=== PATIENT | female | born 1965 | race Caucasian/White ===

== ENCOUNTER 2017-04-15 09:13 | Emergency (ER) | payer OTHER ==
[2017-04-15] MEDS ORDERED: ADVAIR DISK1 INH (09:31)
[2017-04-15] MEDS ORDERED: SPIRIVA IN (09:32)
[2017-04-15] MEDS ORDERED: SPIRIVA RE1.25 MCG/A (09:33)
[2017-04-15] MEDS ORDERED: HYDROXYZINE HCL10 MG PO (09:35)
[2017-04-15 09:53] LABS: HEMOGLOBIN 13.2 g/dl (12.0-16.0); IMMATURE GRANULOCYTES 0.4 % (0.0-1.0); MEAN CELL VOLUME 88.8 fL CALC (80.0-100.0); MEAN CORPUSCULAR HGB 30.1 pG CALC (26.0-32.0); MEAN CORPUSCULAR HGB CONC 33.8 g/L CALC (32.0-36.0); NEUT# 9.94 thou/uL (2.00-7.15); RED BLOOD COUNT 4.39 mill/uL (4.20-5.60); RED CELL DISTRI WIDTH 12.7 % (11.5-15.5)
[2017-04-15 10:11] LABS: INFLUENZA A NONE DETECTED (NONE DETECT); INFLUENZA B NONE DETECTED (NONE DETECT)
[2017-04-15 10:18] LABS: ANION GAP 15 (6-22 (CALC)); BUN 9 mg/dL (7-17); BUN/CREATININE RATIO 13 (12-20 (CALC)); CALCIUM 9.7 mg/dL (8.4-10.2); CARBON DIOXIDE 24 mmol/l (22-30); CHLORIDE 103 mmol/l (95-108); CREATININE 0.7 mg/dL (0.5-1.0); GFR > 60 ML/MIN (>=60 (CALC)); GFR FOR AFR.AMER. > 60 ML/MIN (>=60 (CALC)); GLUCOSE 109 mg/dL (65-105); POTASSIUM 4.6 mmol/l (3.5-5.1); SODIUM 137 mmol/l (137-146)
[2017-04-15 11:09] LABS: URINE BILIRUBIN - DIPSTICK NEGATIVE (NEGATIVE); URINE GLUCOSE - DIPSTICK NEGATIVE (NEGATIVE); URINE KETONE TRACE mg/dL (NEGATIVE); URINE LEUK ESTERASE NEGATIVE (NEGATIVE); URINE NITRITE - DIPSTICK NEGATIVE (Negative); URINE PH 6.5 (4.5-8.0); URINE PROTEIN - DIPSTICK TRACE mg/dL (NEG-TRACE); URINE SPECIFIC GRAVITY 1.015; URINE UROBILINOGEN - DIPSTICK 0.2 E.U./dL (0.2)
[2017-04-15 11:13] LABS: URINE CLARITY SL CLOUDY; URINE COLOR DK. YELLOW
[2017-04-15 11:14] LABS: URINE BLOOD DIPSTICK TRACE (NEGATIVE)
[2017-04-15] MEDS ORDERED: AUGMENTIN875TAB PO (13:03)
[2017-04-15] MEDS ORDERED: ZPAK PO (13:03)
[2017-04-15 13:12] VITALS: BP 110/82
== END 2017-04-15 13:13 | disposition home or self-care (01) | DRG 153 ==
LOC: ED 09:13
PROVIDERS: Family Medicine
DX: J06.9 Acute upper respiratory infection, unspecified (principal); M54.9 Dorsalgia, unspecified; R05 Cough; R50.9 Fever, unspecified

== ENCOUNTER 2017-08-23 11:24 | Inpatient (IN) | payer OTHER ==
[~2017-08-23] VITALS: Ht 160 cm; Wt 50.2 kg
[~2017-08-23 11:24] MED LIST: ADVAIR DISK1 INH; AUGMENTIN875TAB PO; HYDROXYZINE HCL10 MG PO; SPIRIVA IN; SPIRIVA RE1.25 MCG/A; ZPAK PO
--- NOTE | 2017-08-23 11:39 | NUR ---
WHEELCHAIR TO ER ROOM 15, TO BED
[2017-08-23 12:03] LABS: HEMATOCRIT 39.3 % (37.0-47.0); HEMOGLOBIN 13.2 g/dl (12.0-16.0); IMMATURE GRANULOCYTES 0.5 % (0.0-1.0); MEAN CELL VOLUME 87.3 fL CALC (80.0-100.0); MEAN CORPUSCULAR HGB 29.3 pG CALC (26.0-32.0); MEAN CORPUSCULAR HGB CONC 33.6 g/L CALC (32.0-36.0); NEUT# 5.75 thou/uL (2.00-7.15); RED BLOOD COUNT 4.5 mill/uL (4.20-5.60); RED CELL DISTRI WIDTH 13.3 % (11.5-15.5)
[2017-08-23 12:15] LABS: INFLUENZA A NONE DETECTED (NONE DETECT); INFLUENZA B NONE DETECTED (NONE DETECT)
[2017-08-23 12:21] LABS: ALBUMIN 4.2 g/dL (3.2-5.0); ALKALINE PHOSPHATASE 93 u/l (38-126); ANION GAP 15 (6-22 (CALC)); BILIRUBIN, TOTAL 0.3 mg/dL (0.0-1.4); BUN 8 mg/dL (7-17); BUN/CREATININE RATIO 10 (12-20 (CALC)); CARBON DIOXIDE 26 mmol/l (22-30); CHLORIDE 102 mmol/l (95-108); CREATININE 0.8 mg/dL (0.5-1.0); GFR > 60 ML/MIN (>=60 (CALC)); GFR FOR AFR.AMER. > 60 ML/MIN (>=60 (CALC)); POTASSIUM 4.2 mmol/l (3.5-5.1); SGOT/AST 34 u/l (14-36); SGPT/ALT 35 u/l (9-52); SODIUM 138 mmol/l (137-146); TOTAL PROTEIN 7.4 g/dL (6.3-8.2)
[2017-08-23] MEDS ORDERED: VISTARIL 50MG C50 M1 PO (12:33)
[2017-08-23] MEDS ORDERED: ADVAIR DISK2 IN (12:34)
[2017-08-23] MEDS ORDERED: ALBUTEROL SUL0.083 % IN (12:35)
[2017-08-23] MEDS ORDERED: PROVENTIL108 MCG/AC (12:36)
--- NOTE | 2017-08-23 12:37 | NUR ---
SOB IMPROVED, AWAITING LABS, NAD
--- NOTE | 2017-08-23 13:21 | NUR ---
BP NOTED, ER MD AWARE, AWAITING ORDERS, PT NOTES SHE "RUNS A LOW BP" BUT DOES NOT KNOW ANY SPECIFICS, PT NOTES FEELING BETTER AND LESS SOB.
--- NOTE | 2017-08-23 14:20 | NUR ---
PT RESTING QUIETLY, AWAITING BED ASSIGNMENT AND MONITORING BP.
--- NOTE | 2017-08-23 15:22 | NUR ---
DR. FLORES AT BEDSIDE, UPDATED ON BP FINDINGS. SMALL ADULT CUFF FITTED TO RIGHT ARM, BILATERAL UPPER EXTREMITY BP MEASUREMENTS TAKEN WITH MD IN ATTENDANCE.
[2017-08-23 15:57] LABS: URINE BILIRUBIN - DIPSTICK NEGATIVE (NEGATIVE); URINE BLOOD DIPSTICK NEGATIVE (NEGATIVE); URINE COLOR YELLOW; URINE GLUCOSE - DIPSTICK NEGATIVE (NEGATIVE); URINE KETONE TRACE mg/dL (NEGATIVE); URINE LEUK ESTERASE TRACE (NEGATIVE); URINE NITRITE - DIPSTICK NEGATIVE (Negative); URINE PH 5.5 (4.5-8.0); URINE PROTEIN - DIPSTICK NEGATIVE (NEG-TRACE); URINE SPECIFIC GRAVITY <=1.005; URINE UROBILINOGEN - DIPSTICK 0.2 E.U./dL (0.2)
[2017-08-23 16:00] LABS: URINE CLARITY CLEAR
--- NOTE | 2017-08-23 16:20 | NUR ---
AWAITING BED ASSIGNMENT, NO COMPLAINTS VOICED BY PT. RESTING QUIETLY, DENIES PAIN NOR SOB.
--- NOTE | 2017-08-23 16:38 | NUR ---
ER MD AWARE OF CURRENT BP PENDING ADMIT, ER MD NOTES HE AND ATTENDING ARE AWARE OF SBP LESS THAN 90, BUT CONTENT TO ADMIT WITHOUT VASOPRESSORS SINCE PT IS COMPLETELY AWAKE, ALERT, FEELING BETTER, PAIN FREE, WARM/ PINK SKIN WITH CAP REFIL LESS THAN 2 SECONDS PERIPHERALLY.
--- NOTE | 2017-08-23 16:53 | NUR ---
Admission Note Report Given to: PATRIA KWAN Transported by: Wheelchair X Stretcher Transported with: X Nurse Transporter X Patent IV X O2 X Instructional Facilitator
--- NOTE | 2017-08-23 17:07 | NUR ---
female pt received to ICU bed 3 via stretcher accompanied by Rosetta Baldwin RN in stable condition; ambulatory to scale then bed with steady gait; denies dizziness or lightheadedness upon movement/ambulation; c/c of sob starting Sun and fever of 103 starting last night; admission assessment completed at this time; pt alert and oriented x3; denies pain; no n/v noted; resp even and unlabored; lungs coarse with exp wheeze; skin color wnl; o2 per nc at 2L; vehicle monitor technician cough noted; pt admits to sob with minimal exertion; hr reg; sr on monitor; strong pulses; no edema noted; abd soft with bs present; no bm noted per ticket writer; pt denies pain or burning with urination; no urine to inspect at this time; #20 in lac patent with ivf infusing without complication; no redness or edema noted at; no smoking policy reviewed/e-cigarette noted; plan of care/ meds explained; call light within reach; will continue to monitor
[2017-08-23 17:15] VITALS: BP 92/61
[2017-08-23 17:30] VITALS: BP 92/68
[2017-08-23 17:45] VITALS: BP 94/63
[2017-08-23 18:00] VITALS: BP 87/53
[2017-08-23 18:15] VITALS: BP 92/58
--- NOTE | 2017-08-23 18:19 | NUR ---
pt awake in bed; no distress noted; pt offers no complaints; iv patent; no redness or edema noted at site; sr on monitor; o2 per nc; pt deny needs; bed in lowest position; call light within reach
--- NOTE | 2017-08-23 19:00 | NUR ---
REPORT RECEIVED FROM AQUILES CORRALES. PAT ALERT AND ORIENTED X 3 AND LYING IN BED. NO APPARENT ACUTE DISTRESS NOTED.
--- NOTE | 2017-08-23 19:53 | NUR ---
PT C/O BEING SOB AND CHEST FEELING TIGHT. O2 SAT WAS 92% ON 2L NC. DR PARHAM NOTIFIED AND ORDERS RECEIVED FOR DUONEB TREATMENT.
[2017-08-23 20:00] VITALS: BP 97/63
--- NOTE | 2017-08-23 23:55 | NUR ---
REPORT FROM Beatrice ROSARIO RN. ASSUMED PT. CARE.
[2017-08-24] VITALS (14 sets, daily range): BP systolic 80–102; BP diastolic 45–69
--- NOTE | 2017-08-24 00:10 | NUR ---
PT. FOUND AWAKE, ALERT, ORIENTED X 3. FOUND FEBRILE AT 102.3 COUGH NOTED. PT. MEDICATED WITH TYLENOL PER ORDERS. RESPS EVEN AND UNLABORED. MEDICATED WITH SLEEPING PILL PER HER REQUEST. CALL LIGHT REMAINS WITHIN REACH. DENIES COMPLAINTS OF PAIN OR NEED AT THIS TIME. IV FLUIDS CONTINUE TO INFUSE WITHOUT SX OF INFILTRATION OR EXTRAVASATION.
--- NOTE | 2017-08-24 01:28 | NUR ---
TEMP NOW DOWN AT 101.2 FROM 102.3. WILL CONTINUE TO MONITOR FOR FEVER, AND OTHER COMPLAINTS.
--- NOTE | 2017-08-24 02:40 | NUR ---
PT. ASSISTED TO BEDSIDE COMMODE. APPROX 1000 CC TOTAL OUTPUT NOTED TO HAT IN COMMODE AT THIS TIME. EMPTIED. IV FLUIDS CONTINUE TO INFUSE WITHOUT SX OF INFILTRATION OR EXTRAVASATION. REMAINS HYPOTENSIVE, BUT DENIES SYMPTOMS. CALL LIGHT REMAINS WITHIN REACH. WILL CONTINUE TO MONITOR.
--- NOTE | 2017-08-24 04:05 | NUR ---
PT. RESTING ON LT. SIDE IN NO DISTRESS. RESPS REMAIN EVEN AND UNLABORED. INTERMITTENT BRONCHITIC TYPE COUGH NOTED. PT. SINUS-MANUEL IN THE 40-50'S. PT. CALL LIGHT REMAINS WITHIN REACH. WILL CONTINUE TO ASSESS.
--- NOTE | 2017-08-24 05:37 | NUR ---
PT. ASSISTED TO BSC. LAB AT BEDSIDE AT THIS TIME TO DRAW PT. REMAINS STABLE. AFEBRILE. STATES WITH IMPROVEMENT IN SX.
--- NOTE | 2017-08-24 05:45 | NUR ---
RT. AT BEDSIDE AT THIS TIME. NEB TREATMENT IN PROGRESS.
[2017-08-24 05:59] LABS: HEMATOCRIT 34.2 % (37.0-47.0); IMMATURE GRANULOCYTES 0.5 % (0.0-1.0); MEAN CELL VOLUME 90.7 fL CALC (80.0-100.0); MEAN CORPUSCULAR HGB 29.2 pG CALC (26.0-32.0); MEAN CORPUSCULAR HGB CONC 32.2 g/L CALC (32.0-36.0); NEUT# 3.21 thou/uL (2.00-7.15); RED BLOOD COUNT 3.77 mill/uL (4.20-5.60); RED CELL DISTRI WIDTH 13.6 % (11.5-15.5)
[2017-08-24 06:17] LABS: ALBUMIN 3.4 g/dL (3.2-5.0); ALKALINE PHOSPHATASE 61 u/l (38-126); ANION GAP 15 (6-22 (CALC)); BILIRUBIN, TOTAL 0.1 mg/dL (0.0-1.4); BUN 9 mg/dL (7-17); BUN/CREATININE RATIO 15 (12-20 (CALC)); CARBON DIOXIDE 23 mmol/l (22-30); CHLORIDE 110 mmol/l (95-108); CREATININE 0.6 mg/dL (0.5-1.0); GFR > 60 ML/MIN (>=60 (CALC)); GFR FOR AFR.AMER. > 60 ML/MIN (>=60 (CALC)); POTASSIUM 4.3 mmol/l (3.5-5.1); SGOT/AST 33 u/l (14-36); SGPT/ALT 32 u/l (9-52); SODIUM 144 mmol/l (137-146)
[2017-08-24 06:19] LABS: TOTAL PROTEIN 5.9 g/dL (6.3-8.2)
--- NOTE | 2017-08-24 06:40 | NUR ---
pt transported to xray dept via shaji Castañeda RN in stable condition; returned to unit in stable condition;
--- NOTE | 2017-08-24 07:10 | NUR ---
pt awake in bed; no distress noted; pt offers no complaints; assessment completed at this time; pt alert and oriented; denies pain; no n/v noted; resp even and unlabored; pt admits to improved sob/sob on exertion; lungs coarse throughout; skin color wnl; o2 per nc; field worker cough noted; hr reg; strong pulses; no edema noted; sr on monitor; abd soft with bs present; no bm noted per typewriter assembler; pt admits to voiding without complication; no urine to inspect at this time; #20 patent to lac with ivf infusing without complication; no redness or edema noted at site; pt requesting site change d/t discomfort; plan of care/ am meds explained; call light within reach; will continue to monitor
--- NOTE | 2017-08-24 08:14 | NUR ---
awake; conversing on cell phone; sr on monitor; offers no complaints; deny needs; call light within reach; will continue to monitor
--- NOTE | 2017-08-24 10:11 | NUR ---
awake in bed; visitors at bedside; no distress noted; pt offers no complaints; iv intact and patent; no redness or edema noted at site; ra; call light within reach; will continue to monitor
--- NOTE | 2017-08-24 11:52 | NUR ---
awake in bed; offers no complaints; exerional sob noted; iv patent; no redness or edema noted at site; sr on monitor; o2 sat 97% ra; lungs coarse with wheezing throughout; call light within reach; will continue to monitor
--- NOTE | 2017-08-24 13:28 | NUR ---
bp 92/62, hr 102; fluid bolus initiated at this time as per orders for hypotenstion;; iv patent; no redness or edema noted at site
--- NOTE | 2017-08-24 14:03 | NUR ---
awake in bed; no distress noted; iv patent; no redness or edema noted at site; st on monitor; call light within reach; will continue to monitor
--- NOTE | 2017-08-24 14:26 | NUR ---
pt awake in bed; no distress noted; resp even and unlabored; ra; iv patent; no redness or edema noted at site; st on monitor; deny needs; call light within reach; will continue to monitor
--- NOTE | 2017-08-24 14:34 | NUR ---
fluid bolus completed; bp 80/45, sr 90 on monitor; remains hypotensitive; asymptomatic; pt cont to admit to bp "running low"; will continue to monitor
--- NOTE | 2017-08-24 18:02 | NUR ---
awake in bed; offers no complaints of nausea; no vomiting noted at present; iv patent; no redness or edema noted at site; sr on monitor; ra; o2 sat maintained/stable; pt denies needs at this time; bed in lowest position; call light within reach
--- NOTE | 2017-08-24 19:00 | NUR ---
PT SITTING UP IN BED WATCHING TV. PT IS ALERT AND ORIENTED X3. PERRLA. RESP ARE EVEN AND UNLABORED. NO DISTRESS NOTED. WHEEZING NOTED THROUGHOUT LUNGS. O2 SATS 96-98% ON ROOM AIR. HR REGULAR. PULSES PALPABLE THROUGHOUT. NO EDEMA NOTED. BS ACTIVE. #22 YANDEL WITH NS@125CC/HR. NO REDNESS OR EDEMA NOTED. WILL CONTINUE TO MONITOR
--- NOTE | 2017-08-25 | NUR ---
PT RESTING IN BED WITH EYES CLOSED. RESP ARE EVEN AND UNLABORED. NO DISTRESS NOTED. WILL CONTINUE TO MONITOR. CALL LIGHT IN REACH
--- NOTE | 2017-08-25 01:00 | NUR ---
PT WITH COMPLAINTS OF DRY COUGH. ROBITUSSIN ORDERED AND GIVEN. WILL CONTINUE TO MONITOR
[2017-08-25 02:00] VITALS: BP 117/71
--- NOTE | 2017-08-25 04:00 | NUR ---
PT RESTING IN BED WITH EYES CLOSED. RESP ARE EVEN AND UNLABORED. NO DISTRESS NOTED. WILL CONTINUE TO MONTIOR. CALL LIGHT WITHIN REACH
--- NOTE | 2017-08-25 04:28 | NUR ---
LAB INTO DRAW AM LABS
[2017-08-25 04:49] LABS: HEMATOCRIT 32.1 % (37.0-47.0); HEMOGLOBIN 10.5 g/dl (12.0-16.0); IMMATURE GRANULOCYTES 0.6 % (0.0-1.0); MEAN CELL VOLUME 88.7 fL CALC (80.0-100.0); MEAN CORPUSCULAR HGB CONC 32.7 g/L CALC (32.0-36.0); NEUT# 8.58 thou/uL (2.00-7.15); RED BLOOD COUNT 3.62 mill/uL (4.20-5.60); RED CELL DISTRI WIDTH 13.9 % (11.5-15.5)
[2017-08-25 05:21] LABS: ANION GAP 13 (6-22 (CALC)); BUN 7 mg/dL (7-17); BUN/CREATININE RATIO 13 (12-20 (CALC)); CARBON DIOXIDE 26 mmol/l (22-30); CHLORIDE 109 mmol/l (95-108); CREATININE 0.6 mg/dL (0.5-1.0); GFR > 60 ML/MIN (>=60 (CALC)); GFR FOR AFR.AMER. > 60 ML/MIN (>=60 (CALC)); MAGNESIUM 1.9 mg/dL (1.6-2.3); POTASSIUM 4.2 mmol/l (3.5-5.1); SODIUM 144 mmol/l (137-146)
[2017-08-25 06:00] VITALS: BP 106/65
--- NOTE | 2017-08-25 06:19 | NUR ---
PT STATES THAT THE COUGH MEDICATION HELPED A LOT
--- NOTE | 2017-08-25 07:12 | NUR ---
PT SEEN AWAKE, ALERT, ORIENTED X 3. LUNGS CLEAR, RA. PT AFEBRILE AT 97.8. NO DISTRESS, PT COMFORTABLE. PT DOES STATES THAT SHE HAS IRRITATING DRY COUGH.
[2017-08-25 10:00] VITALS: BP 106/73
--- NOTE | 2017-08-25 12:22 | NUR ---
PT SEEN BY DR DHILLON, ANTICIPATE DISCHARGE THIS AFTERNOON. PT CONTINUES TO DO WELL, UP AD DAVE TO BSC, NO SHORTNESS OF BREATH. SATS REMAIN IN MID TO UPPER 90s.
[2017-08-25] MEDS ORDERED: ZITHROMAX250 MG PO (12:39)
[2017-08-25] MEDS ORDERED: ROBITUSSIN200 MG/10 PO (12:42)
[2017-08-25] MEDS ORDERED: PREDNISONE10 MG PO (12:43)
--- NOTE | 2017-08-25 13:48 | NUR ---
PT VERBALIZES UNDERSTANDING OF DC INSTRUCTIONS, REMOVED FROM MONITORS, WAITS FOR HER FAMILY TO COME SONG WRITER. PT LEAVES DM IN STABLE CONDITION.
== END 2017-08-25 13:45 | disposition home or self-care (01) | DRG 192 ==
LOC: ED 11:24 → ED-I 13:22 → ED 16:44 → ICU 16:45
PROVIDERS: Emergency Medicine; Nurse Practitioner Family; ADMIT Internal Medicine; ATTEND Internal Medicine
DX: J44.1 Chronic obstructive pulmonary disease with (acute) exacerbation (principal); Z90.2 Acquired absence of lung [part of]

== ENCOUNTER 2019-12-30 15:21 | Emergency (ER) | payer OTHER ==
[~2019-12-30] VITALS: Ht 160 cm; Wt 48.2 kg
[~2019-12-30 15:21] MED LIST changes: +ADVAIR DISK2 IN; +ALBUTEROL SUL0.083 % IN; +PREDNISONE10 MG PO; +PROVENTIL108 MCG/AC IN; +ROBITUSSIN200 MG/10 PO; +VISTARIL 50MG C50 M1 PO; +ZITHROMAX250 MG PO
[2019-12-30] MEDS ORDERED: SPIRIVA HANDIH18 MCG PO (15:49)
[2019-12-30] MEDS ORDERED: HYDROXYZ HCL50 MG PO (15:51)
[2019-12-30] MEDS ORDERED: LORTAB 5/3255 MG PO ×2 (16:58→16:59)
[2019-12-30 17:23] VITALS: BP 123/73
== END 2019-12-30 17:23 | disposition home or self-care (01) ==
LOC: ED 15:21
DX: S52.501A Unspecified fracture of the lower end of right radius, initial encounter for closed fracture (principal); J43.9 Emphysema, unspecified; F17.290 Nicotine dependence, other tobacco product, uncomplicated; W01.0XXA Fall on same level from slipping, tripping and stumbling without subsequent striking against object, initial encounter; Y93.59 Activity, other involving other sports and athletics played individually

== ENCOUNTER 2020-01-26 13:27 | Emergency (ER) | payer OTHER ==
[~2020-01-26] VITALS: Ht 160 cm; Wt 60.0 kg
[~2020-01-26 13:27] MED LIST changes: +HYDROXYZ HCL50 MG PO; +LORTAB 5/3255 MG PO; +SPIRIVA HANDIH18 MCG PO
[2020-01-26 15:16] LABS: HEMOGLOBIN 12.3 g/dl (12.0-16.0); IMMATURE GRANULOCYTES 0.2 % (0.0-5.0); MEAN CELL VOLUME 88.2 fL CALC (80.0-100.0); MEAN CORPUSCULAR HGB 28.5 pG CALC (26.0-32.0); MEAN CORPUSCULAR HGB CONC 32.3 g/dL CAL (32.0-36.0); NEUT# 3.34 thou/uL (2.00-7.15); RED BLOOD COUNT 4.32 mill/uL (4.20-5.60); RED CELL DISTRI WIDTH 12.2 % (11.5-15.5)
[2020-01-26 15:17] LABS: HEMATOCRIT 38.1 % (37.0-47.0)
[2020-01-26 15:28] LABS: ALKALINE PHOSPHATASE 82 u/l (38-126); ANION GAP 10 (6-22 (CALC)); BUN 10 mg/dL (7-17); BUN/CREATININE RATIO 16 (12-20 (CALC)); CARBON DIOXIDE 27 mmol/l (22-30); CHLORIDE 104 mmol/l (95-108); CREATININE 0.7 mg/dL (0.5-1.0); GFR > 60 ML/MIN (>=60 (CALC)); GFR FOR AFR.AMER. > 60 ML/MIN (>=60 (CALC)); POTASSIUM 4.1 mmol/l (3.5-5.1); SGOT/AST 21 u/l (14-36); SODIUM 137 mmol/l (137-146)
[2020-01-26 15:30] LABS: ALBUMIN 4.3 g/dL (3.2-5.0); BILIRUBIN, TOTAL 0.4 mg/dL (0.0-1.4); TOTAL PROTEIN 7.2 g/dL (6.3-8.2)
[2020-01-26 16:28] LABS: URINE BILIRUBIN - DIPSTICK NEGATIVE (NEGATIVE); URINE BLOOD DIPSTICK NEGATIVE (NEGATIVE); URINE COLOR YELLOW; URINE GLUCOSE - DIPSTICK NEGATIVE (NEGATIVE); URINE KETONE NEGATIVE (NEGATIVE); URINE LEUK ESTERASE NEGATIVE (NEGATIVE); URINE NITRITE - DIPSTICK NEGATIVE (Negative); URINE PROTEIN - DIPSTICK NEGATIVE (NEG-TRACE); URINE SPECIFIC GRAVITY 1.015; URINE UROBILINOGEN - DIPSTICK 0.2 E.U./dL (0.2)
[2020-01-26 17:41] VITALS: BP 110/67
== END 2020-01-26 17:50 | disposition home or self-care (01) ==
LOC: ED 13:27
DX: N95.1 Menopausal and female climacteric states (principal); J43.9 Emphysema, unspecified; F17.290 Nicotine dependence, other tobacco product, uncomplicated; Z98.890 Other specified postprocedural states
CPT/HCPCS: Q9967

== ENCOUNTER 2020-01-31 07:15 | Emergency (ER) | payer OTHER ==
[~2020-01-31] VITALS: Ht 157.5 cm; Wt 45.5 kg
[2020-01-31 08:12] LABS: HEMATOCRIT 42.4 % (37.0-47.0); HEMOGLOBIN 12.8 g/dl (12.0-16.0); IMMATURE GRANULOCYTES 0.3 % (0.0-5.0); MEAN CORPUSCULAR HGB 28.5 pG CALC (26.0-32.0); MEAN CORPUSCULAR HGB CONC 30.2 g/dL CAL (32.0-36.0); NEUT# 1.93 thou/uL (2.00-7.15); RED BLOOD COUNT 4.49 mill/uL (4.20-5.60); RED CELL DISTRI WIDTH 12.7 % (11.5-15.5)
[2020-01-31 08:23] LABS: MEAN CELL VOLUME 94.4 fL CALC (80.0-100.0)
[2020-01-31 08:26] LABS: URINE BILIRUBIN - DIPSTICK NEGATIVE (NEGATIVE); URINE BLOOD DIPSTICK NEGATIVE (NEGATIVE); URINE COLOR YELLOW; URINE GLUCOSE - DIPSTICK NEGATIVE (NEGATIVE); URINE KETONE NEGATIVE (NEGATIVE); URINE LEUK ESTERASE NEGATIVE (NEGATIVE); URINE NITRITE - DIPSTICK NEGATIVE (Negative); URINE PROTEIN - DIPSTICK NEGATIVE (NEG-TRACE); URINE SPECIFIC GRAVITY 1.025; URINE UROBILINOGEN - DIPSTICK 0.2 E.U./dL (0.2)
[2020-01-31 08:41] LABS: ALBUMIN 4.3 g/dL (3.2-5.0); ALKALINE PHOSPHATASE 67 u/l (38-126); ANION GAP 12 (6-22 (CALC)); BUN 7 mg/dL (7-17); BUN/CREATININE RATIO 9 (12-20 (CALC)); CARBON DIOXIDE 22 mmol/l (22-30); CHLORIDE 109 mmol/l (95-108); CREATININE 0.7 mg/dL (0.5-1.0); GFR > 60 ML/MIN (>=60 (CALC)); GFR FOR AFR.AMER. > 60 ML/MIN (>=60 (CALC)); POTASSIUM 4.2 mmol/l (3.5-5.1); SGOT/AST 28 u/l (14-36); SODIUM 139 mmol/l (137-146)
[2020-01-31 08:46] LABS: BILIRUBIN, TOTAL 0.7 mg/dL (0.0-1.4)
[2020-01-31 09:15] LABS: MYOGLOBIN 30 ng/mL (0 - 62)
[2020-01-31] MEDS ORDERED: ATIVAN0.5 MG PO (09:33)
[2020-01-31 09:43] VITALS: BP 115/71
[2020-01-31 10:24] LABS: TSH, 3RD GENERATION 1.87 uIU/mL (0.47 - 4.68)
== END 2020-01-31 09:45 | disposition home or self-care (01) ==
LOC: ED 07:15
PROVIDERS: Emergency Medicine
DX: F41.9 Anxiety disorder, unspecified (principal); J43.9 Emphysema, unspecified; F17.290 Nicotine dependence, other tobacco product, uncomplicated

== ENCOUNTER 2020-02-21 14:45 | Emergency (ER) | payer OTHER ==
[~2020-02-21] VITALS: Ht 157.5 cm; Wt 43.0 kg
[~2020-02-21 14:45] MED LIST changes: +ATIVAN0.5 MG PO
[2020-02-21 17:02] VITALS: BP 108/74
[2020-02-21] MEDS ORDERED: ATIVAN0.5 MG PO (19:28)
== END 2020-02-21 17:05 | disposition home or self-care (01) ==
LOC: ED 14:45
DX: M25.511 Pain in right shoulder (principal); J43.9 Emphysema, unspecified; F17.290 Nicotine dependence, other tobacco product, uncomplicated; Z98.890 Other specified postprocedural states; F41.9 Anxiety disorder, unspecified; F17.200 Nicotine dependence, unspecified, uncomplicated; T42.4X6A Underdosing of benzodiazepines, initial encounter; Z91.128 Patient's intentional underdosing of medication regimen for other reason

== ENCOUNTER 2020-02-21 18:48 | Emergency (ER) | payer OTHER ==
[~2020-02-21] VITALS: Ht 152.4 cm; Wt 46.0 kg
[2020-02-21 19:25] VITALS: BP 145/94
[2020-02-21] MEDS ORDERED: ATIVAN0.5 MG PO (19:28)
== END 2020-02-21 19:30 | disposition home or self-care (01) ==
LOC: ED 18:48
DX: F41.9 Anxiety disorder, unspecified (principal); J43.9 Emphysema, unspecified; F17.200 Nicotine dependence, unspecified, uncomplicated; T42.4X6A Underdosing of benzodiazepines, initial encounter; Z91.128 Patient's intentional underdosing of medication regimen for other reason

== ENCOUNTER 2022-07-07 00:30 | Observation (INO) | payer OTHER ==
[2022-07-07] VITALS (24 sets, daily range): BP systolic 71–156; BP diastolic 53–89
[~2022-07-07] VITALS: Ht 160 cm; Wt 39.7 kg
[2022-07-07 01:16] LABS: BASO% 0.1 % (0-3); EOS% 0.7 % (0-8); IMMATURE GRANULOCYTES 0.9 % (0.0-5.0); LYMPH% 11.5 % (15-41); MEAN CORPUSCULAR HGB CONC 33.3 g/dL CAL (32.0-36.0); NEUT# 16.61 thou/uL (2.00-7.15); NEUT% 83.8 % (42-76); RED CELL DISTRI WIDTH 12.5 % (11.5-15.5)
[2022-07-07 01:36] LABS: ALBUMIN 4.5 g/dL (3.2-5.0); ALKALINE PHOSPHATASE 81 u/l (38-126); BUN 16 mg/dL (7-17); BUN/CREATININE RATIO 21 (12-20 (CALC)); CHLORIDE 103 mmol/l (95-108); CREATININE 0.8 mg/dL (0.5-1.0); GFR FOR AFR.AMER. > 60 ML/MIN (>=60 (CALC)); GFR OTHER RACES > 60 ML/MIN (>=60 (CALC)); POTASSIUM 4.4 mmol/l (3.5-5.1); SGOT/AST 33 u/l (14-36); SODIUM 138 mmol/l (137-146); TOTAL PROTEIN 7.4 g/dL (6.3-8.2)
[2022-07-07 01:42] LABS: ANION GAP 11 (6-22 (CALC)); BILIRUBIN, TOTAL 0.3 mg/dL (0.02-1.3); CARBON DIOXIDE 28 mmol/l (22-30)
[2022-07-07 02:19] LABS: URINE BILIRUBIN - DIPSTICK NEGATIVE (NEGATIVE); URINE BLOOD DIPSTICK NEGATIVE (NEGATIVE); URINE COLOR YELLOW; URINE GLUCOSE - DIPSTICK NEGATIVE (NEGATIVE); URINE KETONE NEGATIVE (NEGATIVE); URINE LEUK ESTERASE NEGATIVE (NEGATIVE); URINE PROTEIN - DIPSTICK NEGATIVE (NEG-TRACE); URINE UROBILINOGEN - DIPSTICK 0.2 E.U./dL (0.2)
[2022-07-07 02:26] LABS: URINE NITRITE - DIPSTICK NEGATIVE (Negative)
[2022-07-08 00:05] VITALS: BP 104/55
[2022-07-08 04:08] VITALS: BP 100/60
[2022-07-08 05:27] LABS: BASO% 0.1 % (0-3); IMMATURE GRANULOCYTES 0.3 % (0.0-5.0); LYMPH% 3.8 % (15-41); MEAN CORPUSCULAR HGB 30.7 pG CALC (26.0-32.0); MEAN CORPUSCULAR HGB CONC 33.7 g/dL CAL (32.0-36.0); MONO% 3.5 % (2-13); NEUT# 17.37 thou/uL (2.00-7.15); NEUT% 92.3 % (42-76); RED BLOOD COUNT 3.91 mill/uL (4.20-5.60)
[2022-07-08 05:48] LABS: HEMATOCRIT 35.6 % (37.0-47.0)
[2022-07-08 05:52] LABS: ALBUMIN 3.7 g/dL (3.2-5.0); ALKALINE PHOSPHATASE 57 u/l (38-126); ANION GAP 13 (6-22 (CALC)); BILIRUBIN, TOTAL 0.3 mg/dL (0.02-1.3); BUN 10 mg/dL (7-17); BUN/CREATININE RATIO 20 (12-20 (CALC)); CARBON DIOXIDE 23 mmol/l (22-30); CHLORIDE 105 mmol/l (95-108); CREATININE 0.5 mg/dL (0.5-1.0); GFR FOR AFR.AMER. > 60 ML/MIN (>=60 (CALC)); GFR OTHER RACES > 60 ML/MIN (>=60 (CALC)); MAGNESIUM 2.3 mg/dL (1.6-2.3); POTASSIUM 4.8 mmol/l (3.5-5.1); SGOT/AST 27 u/l (14-36); SODIUM 136 mmol/l (137-146); TOTAL PROTEIN 6.1 g/dL (6.3-8.2)
[2022-07-08 07:08] VITALS: BP 83/54
[2022-07-08 11:58] VITALS: BP 91/65
[2022-07-08 15:18] VITALS: BP 95/57
[2022-07-08 19:26] VITALS: BP 84/46
[2022-07-09 00:13] VITALS: BP 95/55
[2022-07-09 04:13] VITALS: BP 99/62
[2022-07-09 07:27] VITALS: BP 94/55
[2022-07-09 11:02] VITALS: BP 86/51
[2022-07-09 11:03] VITALS: BP 87/53
[2022-07-09] MEDS ORDERED: ZPAK PO (12:27)
[2022-07-09] MEDS ORDERED: MEDDOSEPAK PO (12:27)
[2022-07-09] MEDS ORDERED: IPRATROPIU0.5 MG/3 M IN (12:28)
== END 2022-07-09 14:35 | disposition home or self-care (01) ==
LOC: ED 00:30 → ED-I 03:35 → ED 03:55 → MS2 03:56
PROVIDERS: Emergency Medicine; Nurse Practitioner Family; ADMIT Internal Medicine; ATTEND Internal Medicine
DX: J44.1 Chronic obstructive pulmonary disease with (acute) exacerbation (principal); J18.9 Pneumonia, unspecified organism; J44.0 Chronic obstructive pulmonary disease with (acute) lower respiratory infection; J96.01 Acute respiratory failure with hypoxia; F41.0 Panic disorder [episodic paroxysmal anxiety]; F17.290 Nicotine dependence, other tobacco product, uncomplicated; Z90.2 Acquired absence of lung [part of]; Z20.822 Contact with and (suspected) exposure to COVID-19
CPT/HCPCS: G0378; Q9967

== ENCOUNTER 2023-12-13 01:15 | Emergency (ER) | payer OTHER ==
[~2023-12-13] VITALS: Ht 160 cm; Wt 37.0 kg
[~2023-12-13 01:15] MED LIST changes: +IPRATROPIU0.5 MG/3 M IN; +MEDDOSEPAK PO
[2023-12-13 01:33] VITALS: BP 122/87
[2023-12-13] MEDS ORDERED: ATIVAN1 M1 PO (01:59)
[2023-12-13 02:00] VITALS: BP 111/74
[2023-12-13] MEDS ORDERED: DEXAMETHASONE 2 MG/TAB TAB PO ONE (02:00)
[2023-12-13] MEDS ORDERED: IPRATROPIUM-Albuterol 0.5MG-2.5MG/3 ML NEB ONE (02:00)
[2023-12-13] MEDS ORDERED: ALLERGY RE50 MCG/ACT (02:00)
[2023-12-13 02:12] LABS: BASO% 0.2 % (0-3); EOS% 1.2 % (0-8); IMMATURE GRANULOCYTES 0.2 % (0.0-5.0); LYMPH% 14.8 % (15-41); MEAN CELL VOLUME 92.3 fL CALC (80.0-100.0); MEAN CORPUSCULAR HGB 30.1 pG CALC (26.0-32.0); MEAN CORPUSCULAR HGB CONC 32.6 g/dL CAL (32.0-36.0); MONO% 7.7 % (2-13); NEUT# 7.59 thou/uL (2.00-7.15); NEUT% 75.9 % (42-76); RED BLOOD COUNT 4.69 mill/uL (4.20-5.60); RED CELL DISTRI WIDTH 12.9 % (11.5-15.5)
[2023-12-13 02:24] LABS: HEMATOCRIT 43.3 % (37.0-47.0); HEMOGLOBIN 14.1 g/dl (12.0-16.0)
[2023-12-13 02:25] LABS: ALBUMIN 3.9 g/dL (3.2-5.0); ALKALINE PHOSPHATASE 60 u/l (38-126); ANION GAP 4 (6-22 (CALC)); BILIRUBIN, TOTAL 0.4 mg/dL (0.02-1.3); BUN 15 mg/dL (7-17); BUN/CREATININE RATIO 27 (12-20 (CALC)); CARBON DIOXIDE 26 mmol/l (22-30); CHLORIDE 108 mmol/l (95-108); CREATININE 0.5 mg/dL (0.5-1.0); ESTIMATED GFR 109 ML/MIN (>=90 (CALC)); POTASSIUM 4.3 mmol/l (3.5-5.1); SGOT/AST 32 u/l (14-36); SODIUM 133 mmol/l (137-146); TOTAL PROTEIN 6.7 g/dL (6.3-8.2)
[2023-12-13 02:30] VITALS: BP 97/74
[2023-12-13 03:00] VITALS: BP 113/70
[2023-12-13 03:30] VITALS: BP 112/74
[2023-12-13] MEDS ORDERED: VENTOLIN HFA108 MCG IN (03:50)
[2023-12-13] MEDS ORDERED: PROMETHAZINE DM1 SOL PO (03:50)
[2023-12-13] MEDS ORDERED: PREDNISONE20 MG PO (03:50)
[2023-12-13 04:00] VITALS: BP 117/80
== END 2023-12-13 04:58 | disposition home or self-care (01) ==
LOC: ED 01:15
PROVIDERS: Internal Medicine
DX: R05.9 Cough, unspecified (principal); R07.9 Chest pain, unspecified; J43.9 Emphysema, unspecified; Z72.0 Tobacco use

== ENCOUNTER 2024-04-15 03:09 | Emergency (ER) | payer OTHER ==
[~2024-04-15] VITALS: Ht 160 cm; Wt 40.0 kg
[2024-04-15] VITALS (16 sets, daily range): BP systolic 83–135; BP diastolic 50–83
[~2024-04-15 03:09] MED LIST changes: +ALLERGY RE50 MCG/ACT NAB; +LEVOFLOXACIN750 MG PO; +PREDNISONE20 MG PO; +PROMETHAZINE DM1 SOL PO; -PROVENTIL108 MCG/AC IN; +VENTOLIN HFA108 MCG; +VENTOLIN HFA108 MCG IN; +[UNRECOGNIZED DRUG - CODE] XX
[2024-04-15] MEDS ORDERED: IPRATROPIUM-Albuterol 0.5MG-2.5MG/3 ML NEB ONE (03:20)
[2024-04-15] MEDS ORDERED: ALBUTEROL SULFATE 2.5 MG VIAL IN ONE (03:20)
[2024-04-15] MEDS ORDERED: methylPREDNISolone SODIUM SUCC 125 MG/2 ML SDV IV ONE (03:20)
[2024-04-15 03:43] LABS: BASO% 0.3 % (0-3); IMMATURE GRANULOCYTES 0.3 % (0.0-5.0); LYMPH% 15.4 % (15-41); MEAN CELL VOLUME 96.1 fL CALC (80.0-100.0); MEAN CORPUSCULAR HGB 30.3 pG CALC (26.0-32.0); MEAN CORPUSCULAR HGB CONC 31.6 g/dL CAL (32.0-36.0); MONO% 4.9 % (2-13); NEUT# 5.51 thou/uL (2.00-7.15); NEUT% 79.1 % (42-76); RED BLOOD COUNT 5.11 mill/uL (4.20-5.60); RED CELL DISTRI WIDTH 12.1 % (11.5-15.5)
[2024-04-15 03:50] LABS: HEMATOCRIT 49.1 % (37.0-47.0); HEMOGLOBIN 15.5 g/dl (12.0-16.0)
[2024-04-15 03:54] LABS: INTERNATIONAL NORMALIZED RATIO 1.1 RATIO (0.7-1.3)
[2024-04-15 03:57] LABS: PROTHROMBIN TIME 11.5 SECONDS (9.0-12.5)
[2024-04-15 04:02] LABS: BUN 10 mg/dL (7-17); BUN/CREATININE RATIO 18 (12-20 (CALC)); CARBON DIOXIDE 27 mmol/l (22-30); CREATININE 0.5 mg/dL (0.5-1.0); ESTIMATED GFR 109 ML/MIN (>=90 (CALC)); POTASSIUM 4.6 mmol/l (3.5-5.1); SGOT/AST 37 u/l (14-36)
[2024-04-15 04:06] LABS: D-DIMER 0.94 mg/L (0.19-0.60)
[2024-04-15 04:12] LABS: ALBUMIN 4.4 g/dL (3.2-5.0); ALKALINE PHOSPHATASE 93 u/l (38-126); ANION GAP 17 (6-22 (CALC)); BILIRUBIN, TOTAL 0.7 mg/dL (0.02-1.3); CHLORIDE 92 mmol/l (95-108); SODIUM 131 mmol/l (137-146); TOTAL PROTEIN 7.8 g/dL (6.3-8.2)
[2024-04-15] MEDS ORDERED: SODIUM CHLORIDE 0.9% 1,000 ML IV ONE (05:35)
[2024-04-15] MEDS ORDERED: ZPAK PO (07:53)
[2024-04-15] MEDS ORDERED: PREDNISONE20 MG PO (07:53)
[2024-04-15 07:58] LABS: URINE BILIRUBIN - DIPSTICK Negative (NEGATIVE); URINE BLOOD DIPSTICK Trace-intact (NEGATIVE); URINE GLUCOSE - DIPSTICK 100 mg/dL (NEGATIVE); URINE KETONE 15 mg/dL (NEGATIVE); URINE LEUK ESTERASE Negative (NEGATIVE); URINE NITRITE - DIPSTICK Negative (Negative); URINE PROTEIN - DIPSTICK Negative (NEG-TRACE); URINE UROBILINOGEN - DIPSTICK 0.2 E.U./dL (0.2)
[2024-04-15 08:03] LABS: URINE COLOR Yellow
[2024-04-23] MEDS ORDERED: COMBIVENT RESPIMAT IN (12:23)
[2024-04-23] MEDS ORDERED: DICLOFENAC75 MG PO (12:24)
[2024-04-23] MEDS ORDERED: SINGULAIR10 MG PO (12:24)
[2024-04-26] MEDS ORDERED: PREDNISONE10 MG PO (08:26)
[2024-04-26] MEDS ORDERED: MORPHINE O10 MG/5 ML PO (08:30)
[2024-04-26] MEDS ORDERED: ATIVAN0.5 MG PO (08:30)
== END 2024-04-15 08:20 | disposition home or self-care (01) ==
LOC: ED 03:09
PROVIDERS: Family Medicine
DX: J44.1 Chronic obstructive pulmonary disease with (acute) exacerbation (principal); J43.9 Emphysema, unspecified; Z90.2 Acquired absence of lung [part of]; F41.0 Panic disorder [episodic paroxysmal anxiety]; Z20.822 Contact with and (suspected) exposure to COVID-19
CPT/HCPCS: Q9967

== ENCOUNTER 2024-07-08 10:18 | Emergency (ER) | payer OTHER ==
[~2024-07-08] VITALS: Ht 160 cm; Wt 36.2 kg
[2024-07-08] VITALS (14 sets, daily range): BP systolic 90–121; BP diastolic 61–87
[~2024-07-08 10:18] MED LIST changes: +COMBIVENT RESPIMAT IN; +DICLOFENAC75 MG PO; +MORPHINE O10 MG/5 ML PO; +SINGULAIR10 MG PO
[2024-07-08] MEDS ORDERED: ONDANSETRON HCl 4 MG/2 ML SDV IV ONE (10:30)
[2024-07-08] MEDS ORDERED: KETOROLAC TROMETHAMINE 15 MG/ML SDV IV ONE (10:30)
[2024-07-08 11:00] LABS: URINE BILIRUBIN - DIPSTICK Negative (NEGATIVE); URINE BLOOD DIPSTICK Negative (NEGATIVE); URINE GLUCOSE - DIPSTICK Negative (NEGATIVE); URINE KETONE Negative (NEGATIVE); URINE NITRITE - DIPSTICK Negative (Negative); URINE PH 6.5 (4.5-8.0); URINE PROTEIN - DIPSTICK Negative (NEG-TRACE); URINE SPECIFIC GRAVITY 1.015; URINE UROBILINOGEN - DIPSTICK 0.2 E.U./dL (0.2)
[2024-07-08 11:01] LABS: URINE COLOR Yellow; URINE LEUK ESTERASE Small (NEGATIVE)
[2024-07-08 11:03] LABS: BASO% 0.2 % (0-3); EOS% 1.6 % (0-8); IMMATURE GRANULOCYTES 0.2 % (0.0-5.0); LYMPH% 10.1 % (15-41); MEAN CELL VOLUME 95.1 fL CALC (80.0-100.0); MEAN CORPUSCULAR HGB 30.5 pG CALC (26.0-32.0); MEAN CORPUSCULAR HGB CONC 32.1 g/dL CAL (32.0-36.0); MONO% 6.6 % (2-13); NEUT# 9.17 thou/uL (2.00-7.15); NEUT% 81.3 % (42-76); RED BLOOD COUNT 4.91 mill/uL (4.20-5.60); RED CELL DISTRI WIDTH 12.4 % (11.5-15.5)
[2024-07-08 11:05] LABS: HEMATOCRIT 46.7 % (37.0-47.0)
[2024-07-08 11:07] LABS: URINE SQUAMOUS EPITHELIAL CELL RARE EPI/hpf (0-FEW); URINE WBC 0-2 WBC/hpf (0-5)
[2024-07-08 11:26] LABS: CREATININE 0.5 mg/dL (0.5-1.0); POTASSIUM 4.8 mmol/l (3.5-5.1)
[2024-07-08 11:27] LABS: ALBUMIN 4.1 g/dL (3.2-5.0); BILIRUBIN, TOTAL 0.7 mg/dL (0.02-1.3); TOTAL PROTEIN 6.9 g/dL (6.3-8.2)
[2024-07-08] MEDS ORDERED: DOXYCYCLINE100 MG PO (13:52)
== END 2024-07-08 14:42 | disposition home or self-care (01) ==
LOC: ED 10:18
PROVIDERS: Family Medicine
DX: J93.9 Pneumothorax, unspecified (principal); J43.9 Emphysema, unspecified; F41.9 Anxiety disorder, unspecified; F17.290 Nicotine dependence, other tobacco product, uncomplicated; Z90.2 Acquired absence of lung [part of]; Z99.81 Dependence on supplemental oxygen
CPT/HCPCS: J1885; J2405

== ENCOUNTER 2024-08-22 10:29 | Emergency (ER) | payer OTHER ==
[~2024-08-22] VITALS: Ht 160 cm; Wt 35.8 kg
[~2024-08-22 10:29] MED LIST changes: +DOXYCYCLINE100 MG PO
[2024-08-22] MEDS ORDERED: IPRATROPIUM-Albuterol 0.5MG-2.5MG/3 ML NEB ONE (10:50)
[2024-08-22] MEDS ORDERED: ALBUTEROL SULFATE 2.5 MG VIAL IN ONE (10:55)
[2024-08-22] MEDS ORDERED: predniSONE 20 MG/TAB PO ONE (10:55)
[2024-08-22 11:05] LABS: BASO% 0.2 % (0-3); EOS% 1.3 % (0-8); HEMATOCRIT 43.8 % (37.0-47.0); HEMOGLOBIN 13.9 g/dl (12.0-16.0); IMMATURE GRANULOCYTES 0.3 % (0.0-5.0); LYMPH% 8.1 % (15-41); MEAN CELL VOLUME 93.4 fL CALC (80.0-100.0); MEAN CORPUSCULAR HGB 29.6 pG CALC (26.0-32.0); MEAN CORPUSCULAR HGB CONC 31.7 g/dL CAL (32.0-36.0); MONO% 5.7 % (2-13); NEUT# 10.75 thou/uL (2.00-7.15); NEUT% 84.4 % (42-76); RED BLOOD COUNT 4.69 mill/uL (4.20-5.60); RED CELL DISTRI WIDTH 12.9 % (11.5-15.5)
[2024-08-22 11:22] LABS: D-DIMER 1.04 mg/L (0.19-0.60)
[2024-08-22 11:24] LABS: ALBUMIN 3.6 g/dL (3.2-5.0); BILIRUBIN, TOTAL 0.7 mg/dL (0.02-1.3); CREATININE 0.4 mg/dL (0.5-1.0); POTASSIUM 3.9 mmol/l (3.5-5.1); TOTAL PROTEIN 6.1 g/dL (6.3-8.2)
[2024-08-22 11:32] LABS: PROTHROMBIN TIME 11.1 SECONDS (9.0-12.5)
[2024-08-22 17:29] LABS: URINE BILIRUBIN - DIPSTICK Negative (NEGATIVE); URINE BLOOD DIPSTICK Negative (NEGATIVE); URINE COLOR Yellow; URINE GLUCOSE - DIPSTICK Negative (NEGATIVE); URINE KETONE Negative (NEGATIVE); URINE LEUK ESTERASE Negative (NEGATIVE); URINE NITRITE - DIPSTICK Negative (Negative); URINE PROTEIN - DIPSTICK Negative (NEG-TRACE); URINE SPECIFIC GRAVITY <=1.005; URINE UROBILINOGEN - DIPSTICK 0.2 E.U./dL (0.2)
[2024-08-22] MEDS ORDERED: PREDNISONE10 MG PO (17:57)
[2024-08-22] MEDS ORDERED: ALBUTEROL SUL0.083 % IN (17:57)
[2024-08-22 18:00] VITALS: BP 141/83
== END 2024-08-22 18:12 | disposition home or self-care (01) ==
LOC: ED 10:29
PROVIDERS: Family Medicine
DX: J44.1 Chronic obstructive pulmonary disease with (acute) exacerbation (principal); J43.9 Emphysema, unspecified; Z90.2 Acquired absence of lung [part of]
CPT/HCPCS: Q9967